=== PATIENT | female | born 1985 | race Caucasian/White ===

== ENCOUNTER 2018-01-09 18:08 | Emergency (ER) | payer SELFPAY ==
[2018-01-09 20:20] VITALS: BP 125/72
== END 2018-01-09 19:46 | disposition home or self-care (01) ==
LOC: FSED 18:08
DX: K08.89 Other specified disorders of teeth and supporting structures (principal); K04.7 Periapical abscess without sinus
CPT/HCPCS: 99282

== ENCOUNTER 2018-02-21 19:24 | Emergency (ER) | payer SELFPAY ==
[~2018-02-21] VITALS: Ht 162.6 cm; Wt 79.4 kg
== END 2018-02-21 20:26 | disposition short-term general hospital (02) ==
LOC: ER 19:24
DX: L02.413 Cutaneous abscess of right upper limb (principal)